=== PATIENT | female | born 1950 | race Hispanic/Latino ===

== ENCOUNTER 2018-04-18 09:58 | Day surgery (SDC) | payer BC ==
[~2018-04-18 09:58] MED LIST: DILAUDID IV PRN; LACTATED RINGERS 1,000 ML IV SCH; VERSED IV NR; ZOFRAN IV PRN
--- NOTE | 2018-04-18 11:21 | XRay Report ---
AP ABDOMEN: HISTORY: Kidney stone. The renal shadows appear normal size and contour. Focal calcifications are suspected in superior left kidney consistent with calyceal stones. No obvious right renal stones. There is suggestion of a 5 mm stone in the mid right ureter near the level of L3-4. Cholecystectomy changes are suspected. The bowel gas pattern is unremarkable. IMPRESSION: Nephrolithiasis as described.
[2018-04-18] MEDS ORDERED: ANCEF/STERILE WATER 2 GM/20 ML IV NR (12:30)
--- NOTE | 2018-04-18 12:33 | Anesthesia Day of Surgery ---
Anesthesia Day of Surgery - Day of Surgery Patient Examined: Yes Patient H&P Reviewed: Yes Patient is NPO: Yes
--- NOTE | 2018-04-18 12:34 | Anesthesia Consultation ---
Anesthesia Consult and Med Hx Date of service: 04/18/18 - Airway Anesthetic Teeth Evaluation: Poor ROM Head & Neck: Adequate Mental/Hyoid Distance: Adequate Mallampati Class: Class III Intubation Access Assessment: Possibly Difficult - Pulmonary Exam CTA: Yes - Cardiac Exam Cardiac Exam: RRR - Pre-Operative Health Status ASA Pre-Surgery Classification: ASA3 Proposed Anesthetic Plan: General - Pulmonary Hx Smoking: No Hx Sleep Apnea: No (LILIANA PRE SCREEN LOW RISK) - Cardiovascular System Hx Hypertension: No Hx Heart Murmur: Yes (CAUSES NO PROBLEMS) - Central Nervous System Hx Back Pain: Yes (FROM STONE) - Other Systems Hx Cancer: Yes (SKIN CA ONLY- REMOVED)
[2018-04-18] MEDS ORDERED: DECADRON ONE (12:46)
[2018-04-18] MEDS ORDERED: ROBINUL ONE (12:46)
[2018-04-18] MEDS ORDERED: ZOFRAN ONE (12:46)
[2018-04-18] MEDS ORDERED: DIPRIVAN 10 MG/ML IV ONE (12:47)
[2018-04-18] MEDS ORDERED: SUBLIMAZE ONE (12:47)
--- NOTE | 2018-04-18 15:18 | Post Operative Note ---
Date of procedure: 04/11/18 Pre-op diagnosis: renal stones Post-op diagnosis: same Findings: eswl Procedure: eswl Anesthesia: RETA Surgeon: JORGE RIBEIRO Estimated blood loss: none Pathology: none Disposition: PACU
--- NOTE | 2018-04-18 15:19 | Discharge Summary ---
Short Stay Discharge Plan Activity: other (no straining ) Weight Bearing Status: Full Weight Bearing Diet: low fat, low cholesterol, low salt Special Instructions: other (inc fluids ) Follow up with: CLAUDIA BARNEY MD [Primary Care Provider] - 7 Days FERNIE FELIX MD [Staff Physician] - 7 Days
--- NOTE | 2018-04-18 16:05 | Operative Report ---
PREOPERATIVE DIAGNOSIS: Left renal stones, left flank pain. POSTOPERATIVE DIAGNOSES: Left renal stones, left flank pain. PROCEDURE: In situ lithotripsy, left side. SURGEON: Jc Finley MD ANESTHESIA: General. FINDINGS: This is a woman with recurrent left flank pain with small stones, left kidney, now presents for lithotripsy. DESCRIPTION OF PROCEDURE: The patient brought to the lithotripsy room and placed on the operating table. Following the induction of anesthesia, stone was easily localized left renal mid aspect of the kidney. Shocks were begun at 1 kV, increased to maximum of 7 kV. They appeared to fragment well and there were soft. The patient tolerated the procedure well. No significant complication. 2500 shocks were given, brought to recovery in stable condition. JOB# [id number] LAM/AMALIA
--- NOTE | 2018-04-18 16:08 | Post Anesthesia Evaluation ---
- Post Anesthesia Evaluation Patient Participated: Yes Airway Patent: Yes Stable Respiratory Function: Yes Nausea/Vomiting: No Temp > 96.8F: Yes Pain Manageable: Yes Adequeate Hydration: Yes Anesthesia Complications: No
[2018-04-18 17:08] VITALS: BP 132/71
== END 2018-04-18 17:00 | disposition home or self-care (01) ==
LOC: OR 09:58
PROVIDERS: ATTEND Urology
DX: N20.0 Calculus of kidney (principal); E78.00 Pure hypercholesterolemia, unspecified; K21.9 Gastro-esophageal reflux disease without esophagitis; E11.9 Type 2 diabetes mellitus without complications; Z79.899 Other long term (current) drug therapy; Z79.82 Long term (current) use of aspirin; Z91.09 Other allergy status, other than to drugs and biological substances; Z90.49 Acquired absence of other specified parts of digestive tract; Z85.828 Personal history of other malignant neoplasm of skin; Z98.890 Other specified postprocedural states
CPT/HCPCS: 50590; 74018; 82962; J0690; J1100; J2250; J2405; J2704; J3010; J7120